=== PATIENT | female | born 1955 | race Caucasian/White ===

== ENCOUNTER → 2018-03-29 | Outpatient (CLI) | payer BC | LOC: RAD 09:45 | DX: K76.89 Other specified diseases of liver (principal); N20.0 Calculus of kidney; R94.5 Abnormal results of liver function studies; R82.998 Other abnormal findings in urine; Z90.49 Acquired absence of other specified parts of digestive tract | CPT/HCPCS: Q9967 ==

== ENCOUNTER → 2021-11-26 | Day surgery (SDC) | payer MEDICARE, BC | LOC: MSO 10-22 10:58 | DX: H25.812 Combined forms of age-related cataract, left eye (principal) | CPT/HCPCS: 00142; J0171; J2250; V2632 ==

== ENCOUNTER → 2021-12-24 | Day surgery (SDC) | payer BC | END | disposition home or self-care (01) | LOC: MSO 09:06 | DX: H25.811 Combined forms of age-related cataract, right eye (principal) | CPT/HCPCS: 00142; J0171; J2250; V2632 ==